=== PATIENT | female | born 1995 | race Caucasian/White ===

== ENCOUNTER 2017-11-07 08:27 | Emergency (ER) | payer SELFPAY ==
[~2017-11-07] VITALS: Ht 154.9 cm; Wt 45.4 kg
[2017-11-07 08:33] VITALS: Ht 154.9 cm; Wt 45.4 kg
[2017-11-07 09:49] VITALS: BP 128/81
== END 2017-11-07 10:49 | disposition home or self-care (01) ==
LOC: ED 08:27
DX: S93.401A Sprain of unspecified ligament of right ankle, initial encounter (principal); Z88.0 Allergy status to penicillin; Z88.2 Allergy status to sulfonamides; X50.1XXA Overexertion from prolonged static or awkward postures, initial encounter; Y93.89 Activity, other specified; Y92.89 Other specified places as the place of occurrence of the external cause; Y99.8 Other external cause status
CPT/HCPCS: Q0092

== ENCOUNTER 2018-07-30 12:20 | Emergency (ER) | payer SELFPAY ==
[~2018-07-30] VITALS: Ht 154.9 cm; Wt 45.8 kg
[2018-07-30 12:48] VITALS: Ht 154.9 cm; Wt 45.8 kg
[2018-07-30 14:36] VITALS: BP 110/76
== END 2018-07-30 14:36 | disposition home or self-care (01) ==
LOC: ED 12:20
DX: J03.90 Acute tonsillitis, unspecified (principal); Z88.0 Allergy status to penicillin; Z88.2 Allergy status to sulfonamides
CPT/HCPCS: J7512

== ENCOUNTER 2018-12-09 20:36 | Emergency (ER) | payer SELFPAY ==
[~2018-12-09] VITALS: Ht 152.4 cm; Wt 45.4 kg
[2018-12-09 20:41] VITALS: Ht 152.4 cm; Wt 45.4 kg
[2018-12-09 21:33] LABS: BASOPHIL % 0.3 % (0-2); CALCIUM 9.2 mg/dL (8.5-10.1); CARBON DIOXIDE 22.6 mmol/L (21-32); CHLORIDE SERUM 104 mmol/L (98-107); GFR1 > 60 mL/min; GLUCOSE SERUM 138 mg/dL (74-106); PLATELET COUNT 265 x10^3mcL (130-400); POTASSIUM SERUM 4.2 mmol/L (3.5-5.1); RED CELL DISTRIBUTION WIDTH 13.7 % (11.5-14.5); SODIUM SERUM 141 mmol/L (136-145)
[2018-12-09 21:41] LABS: ALBUMIN 4.5 g/dL (3.4-5.0); ALKALINE PHOSPHATASE 72 U/L (46-116); ALT/SGPT 28 U/L (14-59); AST/SGOT 43 U/L (15-37); BILIRUBIN TOTAL 0.65 mg/dL (0.20-1.00); FREE T4 1.35 ng/dL (0.76-1.46)
[2018-12-09 21:46] LABS: TOTAL PROTEIN, SERUM 8.3 g/dL (6.4-8.2)
[2018-12-09 22:22] VITALS: BP 106/65
== END 2018-12-09 22:10 | disposition home or self-care (01) ==
LOC: ED 20:36
PROVIDERS: Emergency Medicine
DX: R25.3 Fasciculation (principal); F41.9 Anxiety disorder, unspecified; F32.9 Major depressive disorder, single episode, unspecified; F90.9 Attention-deficit hyperactivity disorder, unspecified type; F42.9 Obsessive-compulsive disorder, unspecified; Z88.0 Allergy status to penicillin; Z88.2 Allergy status to sulfonamides
CPT/HCPCS: 36415; 84439; J2060

== ENCOUNTER 2020-04-03 21:29 | Emergency (ER) | payer OTHER ==
[~2020-04-03] VITALS: Ht 157.5 cm; Wt 42.6 kg
[2020-04-03 21:40] VITALS: Ht 157.5 cm; Wt 42.6 kg
[2020-04-03 22:51] LABS: PLATELET COUNT 248 x10^3mcL (179-408)
[2020-04-03 23:04] LABS: CALCIUM 8.7 mg/dL (8.5-10.1); CARBON DIOXIDE 22.6 mmol/L (21-32); CHLORIDE SERUM 107 mmol/L (98-107); CREATININE SERUM 0.7 mg/dL (0.6-1.0); GFR1 > 60 mL/min; GLUCOSE SERUM 95 mg/dL (74-106); POTASSIUM SERUM 3.5 mmol/L (3.5-5.1); SODIUM SERUM 141 mmol/L (136-145)
[2020-04-03 23:08] LABS: ALBUMIN 3.8 g/dL (3.4-5.0); ALKALINE PHOSPHATASE 52 U/L (46-116); ALT/SGPT 22 U/L (14-59); AST/SGOT 29 U/L (15-37); BILIRUBIN TOTAL 0.3 mg/dL (0.20-1.00); LIPASE 232 IU/L (73-393); TOTAL PROTEIN, SERUM 7.3 g/dL (6.4-8.2)
[2020-04-03 23:15] LABS: BASOPHIL % 2.4 % (0.2-1.3)
[2020-04-04 08:32] LABS: microscopic required? NO
[2020-04-04 08:57] LABS: UA SPECIFIC GRAVITY 1.025 (1.005-1.035); urine erythrocyte NEGATIVE (NEGATIVE)
[2020-04-04 09:32] LABS: AMPHETAMINE QUAL UR NONE DETECTED (See below)
[2020-04-04] MEDS ORDERED: ZYPREXA10 M1 PO (18:33)
[2020-04-04] MEDS ORDERED: PROZAC20 MG PO (18:33)
[2020-04-04 19:05] VITALS: BP 94/46
== END 2020-04-04 19:30 | disposition home or self-care (01) ==
LOC: ED 21:29
PROVIDERS: Emergency Medicine
DX: S61.512A Laceration without foreign body of left wrist, initial encounter (principal); S21.119A Laceration without foreign body of unspecified front wall of thorax without penetration into thoracic cavity, initial encounter; F10.129 Alcohol abuse with intoxication, unspecified; Z20.828 Contact with and (suspected) exposure to other viral communicable diseases; Z88.0 Allergy status to penicillin; Z88.2 Allergy status to sulfonamides; F30.9 Manic episode, unspecified; X78.1XXA Intentional self-harm by knife, initial encounter; Y93.89 Activity, other specified; Y92.89 Other specified places as the place of occurrence of the external cause; Y99.8 Other external cause status
CPT/HCPCS: 90715; G0480; J1200; J1630; J2060; U0003